=== PATIENT | male | born 1945 | race Caucasian/White ===

== ENCOUNTER → 2016-08-08 | Outpatient (CLI) | payer MEDICARE, OTHER ==
[2016-08-08 12:11] LABS: Basophils % (A) 0 %; CH 29.4; CHCM 32.8; Eosinophils # (A) 0.2 k/uL (0-0.7); Eosinophils % (A) 3 %; HCT 47.5 % (39.0-53.0); HDW 2.66; HGB 15.4 gm/dL (13.0-17.5); Luc % (Auto) 2; Lymphocytes % (A) 21 %; MCH 29.2 pg (25.0-35.0); MCHC 32.4 g/dL (31.0-37.0); MCV 90.2 fL (80.0-100.0); Mean Platelet Volume 7.1; Monocytes # (A) 0.2 k/uL (0-1.0); Monocytes % (A) 5 %; Neutrophils # (A) 3.3 k/uL (1.3-7.7); Neutrophils % (A) 69 %; RBC 5.26 m/uL (4.30-5.90); RDW 14.5 % (11.5-15.5); WBC 4.9 k/uL (3.8-10.6); WBC (Perox) 4.86
[2016-08-08 12:12] LABS: Appearance,Urine Clear (Clear); Bilirubin,Urine Negative (Negative); Glucose,Urine (UA) Negative (Negative); Ketones,Urine Negative (Negative); Leukocyte Esterase,Urine Negative (Negative); Mucus,Urine Rare /hpf; Nitrite,Urine Negative (Negative); Particle Count 1925; Protein,Urine 1+ (Negative); RBC,Urine <1 /hpf (0-5); Specific Gravity,Urine 1.015 (1.001-1.035); UA Billing (MACRO vs. MICRO) MICRO; Urobilinogen,Urine <2.0 mg/dL (<2.0); WBC,Urine 2 /hpf (0-5)
[2016-08-08 12:18] LABS: Anion Gap 11 mmol/L; Blood Urea Nitrogen 22 mg/dL (9-20); Calcium 9.5 mg/dL (8.4-10.2); Carbon Dioxide 28 mmol/L (22-30); Chloride 99 mmol/L (98-107); Glucose 177 mg/dL (74-99); Non-African American GFR(MDRD) >60 (>60 ml/min/1.73 sqM); Potassium 4.7 mmol/L (3.5-5.1); Sodium 138 mmol/L (137-145)
== END | disposition home or self-care (01) ==
LOC: LABWHC1 11:42
PROVIDERS: ATTEND Urology
DX: N40.1 Benign prostatic hyperplasia with lower urinary tract symptoms (principal); N21.9 Calculus of lower urinary tract, unspecified
CPT/HCPCS: 36415; 80048; 81001; 85025; 87086

== ENCOUNTER 2020-03-30 16:40 | Inpatient (IN) | payer MEDICARE, OTHER ==
[2020-03-30] MEDS ORDERED: MORPHINE SULFATE 4 MG/ML SYRINGE IV STA (17:26)
[2020-03-30] MEDS ORDERED: SODIUM CHLORIDE 0.9% 500 ML 500 ML IV STA ×2 (17:26→19:55)
[2020-03-30] MEDS ORDERED: ONDANSETRON 4 MG/2 ML VIAL IVP STA (17:26)
[2020-03-30 18:26] LABS: Basophils # (A) 0.1 k/uL (0-0.2); Basophils % (A) 0 %; Eosinophils # (A) 0.1 k/uL (0-0.7); Eosinophils % (A) 1 %; HGB 18.4 gm/dL (13.0-17.5); Lymphocytes # (A) 0.1 k/uL (1.0-4.8); Lymphocytes % (A) 1 %; MCH 31.4 pg (25.0-35.0); MCHC 33.1 g/dL (31.0-37.0); MCV 94.9 fL (80.0-100.0); Mean Platelet Volume 6.4; Monocytes # (A) 0.4 k/uL (0-1.0); Monocytes % (A) 3 %; Neutrophils # (A) 12.9 k/uL (1.3-7.7); Neutrophils % (A) 95 %; Platelet Count 165 k/uL (150-450); RBC 5.86 m/uL (4.30-5.90); RDW 13.1 % (11.5-15.5); WBC 13.6 k/uL (3.8-10.6)
[2020-03-30 18:27] LABS: HCT 55.6 % (39.0-53.0)
[2020-03-30 18:38] LABS: Albumin 4.6 g/dL (3.5-5.0); Calcium 9.8 mg/dL (8.4-10.2); Total Bilirubin 1.1 mg/dL (0.2-1.3); Total Protein 7.7 g/dL (6.3-8.2)
[2020-03-30 18:50] LABS: Partial Thromboplastin Time 23.7 sec (22.0-30.0); Prothrombin Time 10.1 sec (9.0-12.0)
[2020-03-30 18:55] LABS: Potassium 6.3 mmol/L (3.5-5.1)
--- NOTE | 2020-03-30 19:18 | ED ---
Abdominal Pain HPI - General Source: patient Mode of arrival: ambulatory Limitations: no limitations <Parvin Marsh - Last Filed: 03/30/20 21:35> <Loco Magaña - Last Filed: 03/31/20 16:36> - General Chief Complaint: Abdominal Pain Stated Complaint: Abd Pain Time Seen by Provider: 03/30/20 17:09 - History of Present Illness Initial Comments: Patient is a 74-year-old male, with history of ileostomy, presenting to the emergency Department with complaints of severe abdominal pain that started last night. Patient states he noticed a dull stomachache start yesterday evening but throughout the night and today the pain has intensified. Patient states it is intermittent, when it is severe he rates it at 9/10. Currently it is about a 3/10. He states it is mostly in his upper at to mid abdomen. He denies any radiation. He states he does have chronic back pain and that seems to be stable. He has also had about 10 episodes of vomiting throughout last night and into this morning. He states he still feels a little nauseous. He denies any fever, chills, chest pain, shortness of breath. He denies any falls or trauma. 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 He states his output has been less than the last 24 hours. He has no urinary complaints. He has no further complaints at this time. (Parvin Marsh) - Related Data Allergies Allergy/AdvReac Type Severity Reaction Status Date / Time No Known Allergies Allergy Verified 03/30/20 21:40 Review of Systems ROS Other: All systems not noted in ROS Statement are negative. <Parvin Marsh - Last Filed: 03/30/20 21:35> ROS Other: All systems not noted in ROS Statement are negative. <Loco Magaña - Last Filed: 03/31/20 16:36> ROS Statement: Those systems with pertinent positive or pertinent negative responses have been documented in the HPI. Past Medical History Past Medical History: Diabetes Mellitus History of Any Multi-Drug Resistant Organisms: None Reported Additional Past Surgical History / Comment(s): illeostomy Smoking Status: Never smoker Past Alcohol Use History: None Reported Past Drug Use History: None Reported <Parvin Marsh - Last Filed: 03/30/20 21:35> General Exam Limitations: no limitations <Parvin Marsh - Last Filed: 03/30/20 21:35> - General Exam Comments Initial Comments: GENERAL: Patient is well-developed and well-nourished. Patient is nontoxic and in mild distress. HEAD: Atraumatic, normocephalic. EYES: Pupils equal round and reactive to light, extraocular movements intact, sclera anicteric, conjunctiva are normal. Eyelids were unremarkable. ENT: TMs normal, nares patent, oropharynx clear without exudates. Moist mucous membranes. NECK: Normal range of motion, supple without lymphadenopathy or JVD. LUNGS: Unlabored respirations. Breath sounds clear to auscultation bilaterally and equal. No wheezes rales or rhonchi. HEART: Regular rate and rhythm without murmurs, rubs or gallops. ABDOMEN: Pain with palpation epigastric and mid upper abdomen. Ilieostomy present, no signs of infection. Soft, normoactive bowel sounds. No guarding, no rebound. No masses appreciated. : Deferred MUSCULOSKELETAL: Normal extremities with adequate strength and normal range of motion, no pitting or edema. No clubbing or cyanosis. NEUROLOGICAL: Patient is alert and oriented x 3. Motor and sensory are also intact. Cranial nerves II through XII grossly intact. Symmetrical smile. Normal speech, normal gait. PSYCH: Normal mood, normal affect. SKIN: Warm, Dry, normal turgor, no rashes or lesions noted. (Parvin Marsh) Course Vital Signs 03/30/20 03/30/20 03/30/20 16:41 19:38 20:45 Temperature 98.4 F Pulse Rate 68 107 H 121 H Pulse Rate [ Pulse Oximetery ] Respiratory 16 18 18 Rate Blood Pressure 129/76 140/77 O2 Sat by Pulse 97 95 Oximetry 03/30/20 03/30/20 03/30/20 20:51 23:04 23:13 Temperature Pulse Rate 122 H 112 H 112 H Pulse Rate [ Pulse Oximetery ] Respiratory 18 18 Rate Blood Pressure 123/65 O2 Sat by Pulse 96 Oximetry 03/31/20 03/31/20 03/31/20 01:01 01:35 04:00 Temperature Pulse Rate 108 H 108 H Pulse Rate [ 113 H Pulse Oximetery ] Respiratory 18 18 16 Rate Blood Pressure 128/71 127/75 O2 Sat by Pulse 97 94 L Oximetry 03/31/20 04:01 Temperature 98 F Pulse Rate 105 H Pulse Rate [ Pulse Oximetery ] Respiratory 18 Rate Blood Pressure 129/74 O2 Sat by Pulse 94 L Oximetry Medical Decision Making - Lab Data Result diagrams: 03/30/20 18:08 03/30/20 18:08 <Parvin Marsh - Last Filed: 03/30/20 21:35> - Lab Data Result diagrams: 03/31/20 09:42 03/31/20 09:42 <Loco Magaña - Last Filed: 03/31/20 16:36> - Medical Decision Making Patient is a 74-year-old male with history of illostomy presenting with severe abdominal pain, vomiting started last night. Vital signs are stable upon arrival. Patient has significant pain is upper abdomen. Labs show white count of 13.6, coags are normal, potassium is elevated at 6.3, creatinine is 1.35 slightly elevated from baseline, lactic acid did return at 3.3. CT abdomen does show a small bowel obstruction. Patient is given fluids, pain control. He has been resting comfortably. NG tube was placed, patient will remain NPO, and patient will be admitted. Patient accepted by Dr. Almanzar, Dr. Miller on consult for [facility] managment. Case discussed with Dr. Magaña. (Parvin Marsh) 74-year-old male presenting with abdominal pain, vomiting. Patient is distended. Workup is initiated, patient has elevated lactic acid, elevated creatinine. His potassium is also elevated likely secondary to dehydration and acute kidney injury. CT shows small bowel obstruction. Patient is given IV hyd ration, pain control. NG tube is placed. I discussed case with Dr. Almanzar who will take admission with medicine on consult. (Loco Magaña) - Lab Data Lab Results 03/30/20 03/30/20 03/30/20 Range/Units 18:08 18:08 18:08 WBC 13.6 H (3.8-10.6) k/uL RBC 5.86 (4.30-5.90) m/uL Hgb 18.4 H (13.0-17.5) gm/dL Hct 55.6 H (39.0-53.0) % MCV 94.9 (80.0-100.0) fL MCH 31.4 (25.0-35.0) pg MCHC 33.1 (31.0-37.0) g/dL RDW 13.1 (11.5-15.5) % Plt Count 165 (150-450) k/uL MPV 6.4 Neutrophils % 95 % Lymphocytes % 1 % Monocytes % 3 % Eosinophils % 1 % Basophils % 0 % Neutrophils # 12.9 H (1.3-7.7) k/uL Lymphocytes # 0.1 L (1.0-4.8) k/uL Monocytes # 0.4 (0-1.0) k/uL Eosinophils # 0.1 (0-0.7) k/uL Basophils # 0.1 (0-0.2) k/uL PT 10.1 (9.0-12.0) sec INR 1.0 (<1.2) APTT 23.7 (22.0-30.0) sec Sodium (137-145) mmol/L Potassium (3.5-5.1) mmol/L Chloride (98-107) mmol/L Carbon Dioxide (22-30) mmol/L Anion Gap mmol/L BUN (9-20) mg/dL Creatinine (0.66-1.25) mg/dL Est GFR (CKD-EPI)AfAm (>60 ml/min/1.73 sqM) Est GFR (CKD-EPI)NonAf (>60 ml/min/1.73 sqM) Glucose (74-99) mg/dL Lactic Ac Sepsis Rflx Plasma Lactic Acid Margarito (0.7-2.0) mmol/L Calcium (8.4-10.2) mg/dL Total Bilirubin (0.2-1.3) mg/dL AST (17-59) U/L ALT (4-49) U/L Alkaline Phosphatase (38-126) U/L Total Protein (6.3-8.2) g/dL Albumin (3.5-5.0) g/dL Amylase (30-110) U/L Lipase (23-300) U/L Urine Color Light Yellow Urine Appearance Clear (Clear) Urine pH 5.0 (5.0-8.0) Ur Specific [place] 1.050 H (1.001-1.035) Urine Protein Negative (Negative) Urine Glucose (UA) 4+ H (Negative) Urine Ketones 1+ H (Negative) Urine Blood Negative (Negative) Urine Nitrite Negative (Negative) Urine Bilirubin Negative (Negative) Urine Urobilinogen <2.0 (<2.0) mg/dL Ur Leukocyte Esterase Negative (Negative) 03/30/20 03/30/20 03/30/20 Range/Units 18:08 18:08 18:54 WBC (3.8-10.6) k/uL RBC (4.30-5.90) m/uL Hgb (13.0-17.5) gm/dL Hct (39.0-53.0) % MCV (80.0-100.0) fL MCH (25.0-35.0) pg MCHC (31.0-37.0) g/dL RDW (11.5-15.5) % Plt Count (150-450) k/uL MPV Neutrophils % % Lymphocytes % % Monocytes % % Eosinophils % % Basophils % % Neutrophils # (1.3-7.7) k/uL Lymphocytes # (1.0-4.8) k/uL Monocytes # (0-1.0) k/uL Eosinophils # (0-0.7) k/uL Basophils # (0-0.2) k/uL PT (9.0-12.0) sec INR (<1.2) APTT (22.0-30.0) sec Sodium 136 L (137-145) mmol/L Potassium 6.3 H* (3.5-5.1) mmol/L Chloride 99 (98-107) mmol/L Carbon Dioxide 25 (22-30) mmol/L Anion Gap 12 mmol/L BUN 25 H (9-20) mg/dL Creatinine 1.35 H (0.66-1.25) mg/dL Est GFR (CKD-EPI)AfAm 60 (>60 ml/min/1.73 sqM) Est GFR (CKD-EPI)NonAf 52 (>60 ml/min/1.73 sqM) Glucose 320 H (74-99) mg/dL Lactic Ac Sepsis Rflx Y Plasma Lactic Acid Margarito 3.3 H* (0.7-2.0) mmol/L Calcium 9.8 (8.4-10.2) mg/dL Total Bilirubin 1.1 (0.2-1.3) mg/dL AST 31 (17-59) U/L ALT 24 (4-49) U/L Alkaline Phosphatase 72 (38-126) U/L Total Protein 7.7 (6.3-8.2) g/dL Albumin 4.6 (3.5-5.0) g/dL Amylase 55 (30-110) U/L Lipase 27 (23-300) U/L Urine Color Urine Appearance (Clear) Urine pH (5.0-8.0) Ur Specific [place] (1.001-1.035) Urine Protein (Negative) Urine Glucose (UA) (Negative) Urine Ketones (Negative) Urine Blood (Negative) Urine Nitrite (Negative) Urine Bilirubin (Negative) Urine Urobilinogen (<2.0) mg/dL Ur Leukocyte Esterase (Negative) Disposition Decision Date: 03/30/20 Decision Time: 20:04 <Parvin Marsh - Last Filed: 03/30/20 21:35> <Loco Magaña - Last Filed: 03/31/20 16:36> Clinical Impression: Abdominal pain, Small bowel obstruction, Sepsis Disposition: ADMITTED IP TO THIS [facility] Condition: Good
[2020-03-30] MEDS ORDERED: DEXTROSE 50% SYRINGE 50 ML IVP ONE (19:33)
[2020-03-30] MEDS ORDERED: INSULIN REGULAR 100 UNIT/ML VIAL IV ONE (19:33)
[2020-03-30] MEDS ORDERED: ALBUTEROL NEB (CONC) 2.5 MG/0.5 ML INHALATION ONE (19:33)
--- NOTE | 2020-03-30 19:43 | CT ---
EXAMINATION TYPE: CT abdomen pelvis w con DATE OF EXAM: 03/30/2020 COMPARISON: 10/22/2015. HISTORY: Abdominal pain and vomiting CT DLP: 722.4 mGycm Automated exposure control for dose reduction was used. TECHNIQUE: Helical acquisition of images was performed from the lung bases through the pelvis. CONTRAST: Performed without Oral Contrast and with IV Contrast, patient injected with 100 mL of Isovue 300. FINDINGS: LUNG BASES: No significant abnormality is appreciated. LIVER/GB: No acute abnormality is appreciated. Hepatic steatosis is noted. PANCREAS: No significant abnormality is seen. SPLEEN: No significant abnormality is seen. ADRENALS: No significant abnormality is seen. KIDNEYS: No significant abnormality is seen. Benign-appearing 1.4 cm right renal cyst. No follow-up i s needed. FREE AIR: No free air is visualized. RETROPERITONEAL ADENOPATHY: None visualized REPRODUCTIVE ORGANS: No significant abnormality is seen URINARY BLADDER: No acute abnormality is seen. Prostatomegaly seen. PELVIC ADENOPATHY: None visualized. OSSEOUS STRUCTURES: No acute abnormality is seen. Multilevel moderate to severe thoracolumbar spondy losis. BOWEL: Prior colectomy with right-sided ostomy again noted. Multiple dilated small bowel loops witho ut clear transition point seen. No significant free fluid or air. OTHER: Moderate atherosclerotic disease. Small area of hyperdensity in the posterior stomach, most co mpatible with injected material/medication. IMPRESSION: Findings of distal small bowel obstruction, probably related to adhesions. Otherwise prior colectomy with contrast dated ostomy.
[2020-03-30] MEDS ORDERED: PIPERACILLIN-TAZOBACTAM 3.375 GM in SODIUM CHLORIDE 0.9% 100 ML IVPB STA (19:54)
[2020-03-30] MEDS ORDERED: CALCIUM GLUCONATE 1 GM in SODIUM CHLORIDE 0.9% 100 ML IVPB ONE (20:00)
[2020-03-30] MEDS ORDERED: NALOXONE 0.4 MG/ML 1 ML VIAL IV PRN (20:03)
[2020-03-30] MEDS ORDERED: MORPHINE SULFATE 4 MG/ML SYRINGE IV PRN (20:03)
[2020-03-30] MEDS ORDERED: ONDANSETRON 4 MG/2 ML VIAL IVP PRN (20:03)
--- NOTE | 2020-03-30 20:38 | XR ---
EXAMINATION TYPE: XR chest 1V portable DATE OF EXAM: 03/30/2020 COMPARISON: NONE HISTORY: NG tube placement. TECHNIQUE: Single frontal view of the chest is obtained. FINDINGS: There is demonstration of an NG tube with tip overlying the stomach. There is no focal air space opacity, pleural effusion, or pneumothorax seen. The cardiac silhouette size is within normal limits. The osseous structures are intact. IMPRESSION: As above.
[2020-03-30 21:30] LABS: Glucose,Whole Blood 316 mg/dL (75-99)
[2020-03-30] MEDS: SODIUM CHLORIDE 0.9% 1,000 ML IV SCH (21:34)
[2020-03-30 21:36] LABS: Appearance,Urine Clear (Clear); Bilirubin,Urine Negative (Negative); Blood,Urine Negative (Negative); Color,Urine Light Yellow; Glucose,Urine (UA) 4+ (Negative); Ketones,Urine 1+ (Negative); Leukocyte Esterase,Urine Negative (Negative); Nitrite,Urine Negative (Negative); Protein,Urine Negative (Negative); Urobilinogen,Urine <2.0 mg/dL (<2.0)
[2020-03-30] MEDS: INSULIN ASPART (NovoLOG) 100 UNIT/ML VIAL SQ SCH (21:51)
[2020-03-30] MEDS ORDERED: SODIUM CHLORIDE 0.9% 1,000 ML IV STA (22:00)
--- NOTE | 2020-03-30 22:14 | ED ---
Medical Decision Making - Lab Data Result diagrams: 03/30/20 18:08 03/30/20 18:08 <Parvin Marsh - Last Filed: 03/30/20 22:04> - Lab Data Result diagrams: 03/31/20 09:42 03/31/20 09:42 <Loco Magaña Leny - Last Filed: 03/31/20 16:35> - Medical Decision Making Patient's second lactic acid came back increased 7.1. I did complete a focus of this exam. Patient is tachycardic in the 120s. He is having no pain at this time, no further complaints at this time. Patient was given an additional liter bolus, we will continue with maintenance fluids, recheck potassium, and recheck lactic. (Parvin Marsh) - Lab Data Lab Results 03/30/20 03/30/20 03/30/20 Range/Units 18:08 18:08 18:08 WBC 13.6 H (3.8-10.6) k/uL RBC 5.86 (4.30-5.90) m/uL Hgb 18.4 H (13.0-17.5) gm/dL Hct 55.6 H (39.0-53.0) % MCV 94.9 (80.0-100.0) fL MCH 31.4 (25.0-35.0) pg MCHC 33.1 (31.0-37.0) g/dL RDW 13.1 (11.5-15.5) % Plt Count 165 (150-450) k/uL MPV 6.4 Neutrophils % 95 % Lymphocytes % 1 % Monocytes % 3 % Eosinophils % 1 % Basophils % 0 % Neutrophils # 12.9 H (1.3-7.7) k/uL Lymphocytes # 0.1 L (1.0-4.8) k/uL Monocytes # 0.4 (0-1.0) k/uL Eosinophils # 0.1 (0-0.7) k/uL Basophils # 0.1 (0-0.2) k/uL PT 10.1 (9.0-12.0) sec INR 1.0 (<1.2) APTT 23.7 (22.0-30.0) sec Sodium (137-145) mmol/L Potassium (3.5-5.1) mmol/L Chloride (98-107) mmol/L Carbon Dioxide (22-30) mmol/L Anion Gap mmol/L BUN (9-20) mg/dL Creatinine (0.66-1.25) mg/dL Est GFR (CKD-EPI)AfAm (>60 ml/min/1.73 sqM) Est GFR (CKD-EPI)NonAf (>60 ml/min/1.73 sqM) Glucose (74-99) mg/dL Lactic Ac Sepsis Rflx Plasma Lactic Acid Margarito (0.7-2.0) mmol/L Calcium (8.4-10.2) mg/dL Total Bilirubin (0.2-1.3) mg/dL AST (17-59) U/L ALT (4-49) U/L Alkaline Phosphatase (38-126) U/L Total Protein (6.3-8.2) g/dL Albumin (3.5-5.0) g/dL Amylase (30-110) U/L Lipase (23-300) U/L Urine Color Light Yellow Urine Appearance Clear (Clear) Urine pH 5.0 (5.0-8.0) Ur Specific [place] 1.050 H (1.001-1.035) Urine Protein Negative (Negative) Urine Glucose (UA) 4+ H (Negative) Urine Ketones 1+ H (Negative) Urine Blood Negative (Negative) Urine Nitrite Negative (Negative) Urine Bilirubin Negative (Negative) Urine Urobilinogen <2.0 (<2.0) mg/dL Ur Leukocyte Esterase Negative (Negative) 03/30/20 03/30/20 03/30/20 Range/Units 18:08 18:08 18:54 WBC (3.8-10.6) k/uL RBC (4.30-5.90) m/uL Hgb (13.0-17.5) gm/dL Hct (39.0-53.0) % MCV (80.0-100.0) fL MCH (25.0-35.0) pg MCHC (31.0-37.0) g/dL RDW (11.5-15.5) % Plt Count (150-450) k/uL MPV Neutrophils % % Lymphocytes % % Monocytes % % Eosinophils % % Basophils % % Neutrophils # (1.3-7.7) k/uL Lymphocytes # (1.0-4.8) k/uL Monocytes # (0-1.0) k/uL Eosinophils # (0-0.7) k/uL Basophils # (0-0.2) k/uL PT (9.0-12.0) sec INR (<1.2) APTT (22.0-30.0) sec Sodium 136 L (137-145) mmol/L Potassium 6.3 H* (3.5-5.1) mmol/L Chloride 99 (98-107) mmol/L Carbon Dioxide 25 (22-30) mmol/L Anion Gap 12 mmol/L BUN 25 H (9-20) mg/dL Creatinine 1.35 H (0.66-1.25) mg/dL Est GFR (CKD-EPI)AfAm 60 (>60 ml/min/1.73 sqM) Est GFR (CKD-EPI)NonAf 52 (>60 ml/min/1.73 sqM) Glucose 320 H (74-99) mg/dL Lactic Ac Sepsis Rflx Y Plasma Lactic Acid Margarito 3.3 H* (0.7-2.0) mmol/L Calcium 9.8 (8.4-10.2) mg/dL Total Bilirubin 1.1 (0.2-1.3) mg/dL AST 31 (17-59) U/L ALT 24 (4-49) U/L Alkaline Phosphatase 72 (38-126) U/L Total Protein 7.7 (6.3-8.2) g/dL Albumin 4.6 (3.5-5.0) g/dL Amylase 55 (30-110) U/L Lipase 27 (23-300) U/L Urine Color Urine Appearance (Clear) Urine pH (5.0-8.0) Ur Specific [place] (1.001-1.035) Urine Protein (Negative) Urine Glucose (UA) (Negative) Urine Ketones (Negative) Urine Blood (Negative) Urine Nitrite (Negative) Urine Bilirubin (Negative) Urine Urobilinogen (<2.0) mg/dL Ur Leukocyte Esterase (Negative) Critical Care Time Critical Care Time: Yes Total Critical Care Time: 35 (Severe abdominal pain, small bowel obstruction, lactic acid elevated at 3.3 then increased to 7.1, 2 fluid boluses, maintenance fluids, elevated potassium.) <Parvin Marsh - Last Filed: 03/30/20 22:04> Disposition <Parvin Marsh - Last Filed: 03/30/20 22:04> <Loco Magaña - Last Filed: 03/31/20 16:35> Clinical Impression: Abdominal pain, Small bowel obstruction, Sepsis Disposition: ADMITTED IP TO THIS HOSP Condition: Good Procedures - Sepsis Sepsis Focused Exam #1 Time Sepsis Criteria Met: 21:30 Sepsis Focused Exam Date: 03/30/20 Sepsis Focused Exam Time: 22:11 Sepsis Focused Exam Complete: Yes Vital Signs & RN Notes Reviewed: Yes Capillary Refill: < 2 Seconds: Fingers, Toes Peripheral Pulses: Normal: Radial (R), Radial (L), Dorsalis Pedis (R), Dorsalis Pedis (L) Skin Color: Normal for Patient Respiratory Exam: normal lung sounds Cardiovascular Exam: tachycardia <aPrvin Marsh - Last Filed: 03/30/20 22:04>
[2020-03-31] MEDS ORDERED: SODIUM CHLORIDE 0.9% 1,000 ML IV ONE (01:14)
[2020-03-31] MEDS: PIPERACILLIN-TAZOBACTAM 3.375 GM in SODIUM CHLORIDE 0.9% 100 ML IVPB SCH ×3 (04:33→19:50)
[2020-03-31 07:38] LABS: Glucose,Whole Blood 212 mg/dL (75-99)
[2020-03-31] MEDS: SODIUM CHLORIDE 0.9% 1,000 ML IV SCH ×2 (08:07→12:32)
[2020-03-31] MEDS: INSULIN ASPART (NovoLOG) 100 UNIT/ML VIAL SQ SCH ×4 (08:07→21:13)
[2020-03-31 10:41] LABS: Basophils % (A) 1 %; Eosinophils # (A) 0.1 k/uL (0-0.7); Eosinophils % (A) 2 %; Lymphocytes # (A) 0.4 k/uL (1.0-4.8); Lymphocytes % (A) 7 %; MCH 30.9 pg (25.0-35.0); MCHC 32.1 g/dL (31.0-37.0); MCV 96.3 fL (80.0-100.0); Mean Platelet Volume 6.3; Monocytes # (A) 0.4 k/uL (0-1.0); Monocytes % (A) 8 %; Neutrophils # (A) 4.3 k/uL (1.3-7.7); Neutrophils % (A) 81 %; Platelet Count 152 k/uL (150-450); RBC 4.98 m/uL (4.30-5.90); RDW 13.4 % (11.5-15.5); WBC 5.4 k/uL (3.8-10.6)
[2020-03-31 10:48] LABS: ALT 18 U/L (4-49); AST 29 U/L (17-59); African American GFR (CKD) 71 (>60 ml/min/1.73 sqM); Albumin 3.2 g/dL (3.5-5.0); Albumin/Globulin Ratio 1.4; Alkaline Phosphatase 49 U/L (38-126); Anion Gap 5 mmol/L; Blood Urea Nitrogen 18 mg/dL (9-20); Carbon Dioxide 29 mmol/L (22-30); Chloride 105 mmol/L (98-107); Globulin 2.3 g/dL; Glucose 220 mg/dL (74-99); Non-African American GFR(CKD) 61 (>60 ml/min/1.73 sqM); Potassium 4.4 mmol/L (3.5-5.1); Sodium 139 mmol/L (137-145); Total Bilirubin 1.1 mg/dL (0.2-1.3); Total Protein 5.5 g/dL (6.3-8.2)
[2020-03-31 10:49] LABS: HGB 15.4 gm/dL (13.0-17.5)
[2020-03-31 11:39] LABS: Glucose,Whole Blood 180 mg/dL (75-99)
[2020-03-31] MEDS: ACETAMINOPHEN IV (For NPO) 1,000 MG in EMPTY BAG 1 BAG IVPB SCH ×3 (12:24→23:12)
--- NOTE | 2020-03-31 12:26 | P.GSHP ---
History of Present Illness H&P Date: 03/31/20 CHIEF COMPLAINT: Abdominal pain HISTORY OF PRESENT ILLNESS: This is a 74-year-old male with a known history of ulcerative colitis with colectomy and ileostomy placement about 45 years ago. He also has a history of diabetes mellitus type 2, hypertension and hypothyroidism. Patient presents to the emergency room with complaints of lower abdominal pain that started yesterday evening. Patient initially started with a dull stomachache yesterday but throughout the night the pain intensified. He r eports that the pain came in waves. And would get as severe as 9 out of 10. The pain does not radiate. He has had nausea and vomiting. He reports decreased output through his ileostomy. He has been feeling hot and cold. Patient denies any fever. Denies any difficulty with urinating. He had a computed tomography scan of the abdomen and pelvis with findings of the distal small bowel obstruction possibly related to adhesions. NG tube placed in ER. NG tube output 250 mL of bilious. PAST MEDICAL HISTORY: See list. PAST SURGICAL HISTORY: See list. MEDICATIONS: See list. ALLERGIES: See list. SOCIAL HISTORY: No illicit drug use. REVIEW OF SYSTEMS: CONSTITUTIONAL: Denies fever or chills. HEENT: Denies blurred vision, vision changes, or eye pain. Denies hemoptysis CARDIOVASCULAR: Denies chest pain or pressure. RESPIRATORY: No shortness of breath. GASTROINTESTINAL: See HPI for pertinent findings HEMATOLOGIC: Denies bleeding disorders. GENITOURINARY: Denies any blood in urine or increased urinary frequency. SKIN: Denies pruitis. Denies rash. PHYSICAL EXAM: VITAL SIGNS: Reviewed GENERAL: Well-developed in no acute distress. HEENT: No sclera icterus. Extraocular movements grossly intact. Moist buccal mucosa. Head is atraumatic, normocephalic. No nasal drainage. ABDOMEN: Soft. Distended with lower abdominal tenderness. NG tube in place NEUROLOGIC: Alert and oriented. Cranial nerves II through XII grossly intact. LABORATORY DATA: WBC 13.6 down to 5.4 hemoglobin 15.4 potassium 6.3 down to 4.4 creatinine 1.35 down to 1.17 lactic acid 7.1 down to 3.3 LFTs and lipase normal UA negative IMAGING: computed tomography scan of the abdomen and pelvis with findings of the distal small bowel obstruction possibly related to adhesions ASSESSMENT: 1. Small bowel obstruction possibly related to adhesions 2. Possible sepsis present on admission with elevated lactic acid and tachycardia 3. Hyperkalemia corrected 4. Dehydration and acute kidney injury 5. Diabetes mellitus type 2 6. History of ulcerative colitis status post colectomy and ileostomy placement about 45 years ago PLAN: -Continue with conservative management for bowel obstruction -Continue NG tube for decompression -Increase IV fluids to 125 mL per hour -Add IV Tylenol as needed for pain and continue morphine as needed -Keep patient nothing by mouth except for ice chips -Continue IV antibiotics -Consult medicine for medical management -GI prophylaxis Protonix and DVT prophylaxis subcu heparin Physician Bicycle Fitter note has been reviewed by physician. Signing provider agrees with the documented findings, assessment, and plan of care. Past Medical History Past Medical History: Diabetes Mellitus Additional Past Medical History / Comment(s): Dizziness, chronic and recently worse, BPH, stated he had a major bleed after a surgery which required transfusions when he was in his twenties. History of Any Multi-Drug Resistant Organisms: None Reported Past Surgical History: Prostate Surgery Additional Past Surgical History / Comment(s): illeostomy Past Anesthesia/Blood Transfusion Reactions: Blood Transfusion Reaction Additional Past Anesthesia/Blood Transfusion Reaction / Comment(s): States he had a reaction to one transfusion but it was corrected quickly and completed Smoking Status: Never smoker Past Alcohol Use History: None Reported Past Drug Use History: None Reported - Past Family History Father Family Medical History: Cancer, Diabetes Mellitus Medications and Allergies Home Medications Medication Instructions Recorded Confirmed Type Benazepril [Lotensin] 2.5 mg PO DAILY 03/30/20 03/30/20 History Famotidine [Pepcid] 20 mg PO DAILY 03/30/20 03/30/20 History Insulin Aspart Protam & Aspart 30 units SQ BID 03/30/20 03/30/20 History [NovoLOG MIX 70-30 Flexpen] Levothyroxine Sodium [Synthroid] 100 mcg PO HS 03/30/20 03/30/20 History Simvastatin [Zocor] 20 mg PO HS 03/30/20 03/30/20 History Terazosin HCl [Hytrin] 10 mg PO DAILY 03/30/20 03/30/20 History allopurinoL [Zyloprim] 300 mg PO DAILY 03/30/20 03/30/20 History metFORMIN HCL [Glucophage] 425 mg PO DAILY 03/30/20 03/30/20 History Allergies Allergy/AdvReac Type Severity Reaction Status Date / Time No Known Allergies Allergy Verified 03/30/20 21:40 Surgical - Exam Vital Signs Temp Pulse Resp BP Pulse Ox 98.4 F 68 16 129/76 97 03/30/20 16:41 03/30/20 16:41 03/30/20 16:41 03/30/20 16:41 03/30/20 16:41 Results - Labs 03/31/20 09:42 03/31/20 09:42 Abnormal Lab Results - Last 24 Hours (Table) 03/30/20 03/30/20 03/30/20 Range/Units 18:08 18:08 18:08 WBC 13.6 H (3.8-10.6) k/uL Hgb 18.4 H (13.0-17.5) gm/dL Hct 55.6 H (39.0-53.0) % Neutrophils # 12.9 H (1.3-7.7) k/uL Lymphocytes # 0.1 L (1.0-4.8) k/uL Sodium 136 L (137-145) mmol/L Potassium 6.3 H* (3.5-5.1) mmol/L BUN 25 H (9-20) mg/dL Creatinine 1.35 H (0.66-1.25) mg/dL Glucose 320 H (74-99) mg/dL POC Glucose (mg/dL) (75-99) mg/dL Plasma Lactic Acid Margarito (0.7-2.0) mmol/L Calcium (8.4-10.2) mg/dL Total Protein (6.3-8.2) g/dL Albumin (3.5-5.0) g/dL Ur Specific [place] 1.050 H (1.001-1.035) Urine Glucose (UA) 4+ H (Negative) Urine Ketones 1+ H (Negative) 03/30/20 03/30/20 03/30/20 Range/Units 18:08 21:17 21:29 WBC (3.8-10.6) k/uL Hgb (13.0-17.5) gm/dL Hct (39.0-53.0) % Neutrophils # (1.3-7.7) k/uL Lymphocytes # (1.0-4.8) k/uL Sodium (137-145) mmol/L Potassium (3.5-5.1) mmol/L BUN (9-20) mg/dL Creatinine (0.66-1.25) mg/dL Glucose (74-99) mg/dL POC Glucose (mg/dL) 316 H (75-99) mg/dL Plasma Lactic Acid Margarito 3.3 H* 7.1 H* (0.7-2.0) mmol/L Calcium (8.4-10.2) mg/dL Total Protein (6.3-8.2) g/dL Albumin (3.5-5.0) g/dL Ur Specific [place] (1.001-1.035) Urine Glucose (UA) (Negative) Urine Ketones (Negative) 03/31/20 03/31/20 03/31/20 Range/Units 00:19 03:15 06:06 WBC (3.8-10.6) k/uL Hgb (13.0-17.5) gm/dL Hct (39.0-53.0) % Neutrophils # (1.3-7.7) k/uL Lymphocytes # (1.0-4.8) k/uL Sodium (137-145) mmol/L Potassium (3.5-5.1) mmol/L BUN (9-20) mg/dL Creatinine (0.66-1.25) mg/dL Glucose (74-99) mg/dL POC Glucose (mg/dL) (75-99) mg/dL Plasma Lactic Acid Margarito 5.2 H* 2.8 H* 2.2 H* (0.7-2.0) mmol/L Calcium (8.4-10.2) mg/dL Total Protein (6.3-8.2) g/dL Albumin (3.5-5.0) g/dL Ur Specific [place] (1.001-1.035) Urine Glucose (UA) (Negative) Urine Ketones (Negative) 03/31/20 03/31/20 03/31/20 Range/Units 07:37 09:42 09:42 WBC (3.8-10.6) k/uL Hgb (13.0-17.5) gm/dL Hct (39.0-53.0) % Neutrophils # (1.3-7.7) k/uL Lymphocytes # 0.4 L (1.0-4.8) k/uL Sodium (137-145) mmol/L Potassium (3.5-5.1) mmol/L BUN (9-20) mg/dL Creatinine (0.66-1.25) mg/dL Glucose 220 H (74-99) mg/dL POC Glucose (mg/dL) 212 H (75-99) mg/dL Plasma Lactic Acid Margarito (0.7-2.0) mmol/L Calcium 8.0 L (8.4-10.2) mg/dL Total Protein 5.5 L (6.3-8.2) g/dL Albumin 3.2 L (3.5-5.0) g/dL Ur Specific [place] (1.001-1.035) Urine Glucose (UA) (Negative) Urine Ketones (Negative) 03/31/20 03/31/20 Range/Units 09:42 11:38 WBC (3.8-10.6) k/uL Hgb (13.0-17.5) gm/dL Hct (39.0-53.0) % Neutrophils # (1.3-7.7) k/uL Lymphocytes # (1.0-4.8) k/uL Sodium (137-145) mmol/L Potassium (3.5-5.1) mmol/L BUN (9-20) mg/dL Creatinine (0.66-1.25) mg/dL Glucose (74-99) mg/dL POC Glucose (mg/dL) 180 H (75-99) mg/dL Plasma Lactic Acid Margarito 3.3 H* (0.7-2.0) mmol/L Calcium (8.4-10.2) mg/dL Total Protein (6.3-8.2) g/dL Albumin (3.5-5.0) g/dL Ur Specific [place] (1.001-1.035) Urine Glucose (UA) (Negative) Urine Ketones (Negative) Diabetes panel 03/30/20 03/31/20 03/31/20 Range/Units 18:08 00:19 09:42 Sodium 136 L 139 (137-145) mmol/L Potassium 6.3 H* 4.2 4.4 (3.5-5.1) mmol/L Chloride 99 105 (98-107) mmol/L Carbon Dioxide 25 29 (22-30) mmol/L BUN 25 H 18 (9-20) mg/dL Creatinine 1.35 H 1.17 (0.66-1.25) mg/dL Glucose 320 H 220 H (74-99) mg/dL Calcium 9.8 8.0 L (8.4-10.2) mg/dL AST 31 29 (17-59) U/L ALT 24 18 (4-49) U/L Alkaline Phosphatase 72 49 (38-126) U/L Total Protein 7.7 5.5 L (6.3-8.2) g/dL Albumin 4.6 3.2 L (3.5-5.0) g/dL Calcium panel 03/30/20 03/31/20 Range/Units 18:08 09:42 Calcium 9.8 8.0 L (8.4-10.2) mg/dL Albumin 4.6 3.2 L (3.5-5.0) g/dL Pituitary panel 03/30/20 03/31/20 03/31/20 Range/Units 18:08 00:19 09:42 Sodium 136 L 139 (137-145) mmol/L Potassium 6.3 H* 4.2 4.4 (3.5-5.1) mmol/L Chloride 99 105 (98-107) mmol/L Carbon Dioxide 25 29 (22-30) mmol/L BUN 25 H 18 (9-20) mg/dL Creatinine 1.35 H 1.17 (0.66-1.25) mg/dL Glucose 320 H 220 H (74-99) mg/dL Calcium 9.8 8.0 L (8.4-10.2) mg/dL Adrenal panel 03/30/20 03/31/20 03/31/20 Range/Units 18:08 00:19 09:42 Sodium 136 L 139 (137-145) mmol/L Potassium 6.3 H* 4.2 4.4 (3.5-5.1) mmol/L Chloride 99 105 (98-107) mmol/L Carbon Dioxide 25 29 (22-30) mmol/L BUN 25 H 18 (9-20) mg/dL Creatinine 1.35 H 1.17 (0.66-1.25) mg/dL Glucose 320 H 220 H (74-99) mg/dL Calcium 9.8 8.0 L (8.4-10.2) mg/dL Total Bilirubin 1.1 1.1 (0.2-1.3) mg/dL AST 31 29 (17-59) U/L ALT 24 18 (4-49) U/L Alkaline Phosphatase 72 49 (38-126) U/L Total Protein 7.7 5.5 L (6.3-8.2) g/dL Albumin 4.6 3.2 L (3.5-5.0) g/dL
[2020-03-31] MEDS: PANTOPRAZOLE 40 MG/10 ML VIAL IVP SCH (12:35)
[2020-03-31 17:20] LABS: Glucose,Whole Blood 218 mg/dL (75-99)
--- NOTE | 2020-03-31 19:27 | HP ---
HISTORY AND PHYSICAL ADMITTING SUMMARY: CHIEF COMPLAINT: Abdominal pain and vomiting. HISTORY OF PRESENT ILLNESS: This is the first known admission for ut for this 74-year-old white male. He came to the office complaining of 1-day history of generalized crampy abdominal pain with 1 episode of vomiting. He has a colostomy and his discharge in the colostomy has been reduced. He has had no fever, chills, dysuria, frequency etc. REVIEW OF SYSTEMS: Otherwise unremarkable. Past medical history, family history and personal and social histories are otherwise unremarkable only include his medications. He does not smoke or drink. PHYSICAL EXAMINATION: Blood pressure is 116/74 with a pulse of 85, respirations of 33. He is afebrile. In general, he appeared to be small, slightly dehydrated. Head, ears, eyes, nose, mouth, and throat were unremarkable. Chest is clear. Cardiac exam is normal and the abdomen is slightly protuberant. He had generalized abdominal tenderness with guarding. Bowel sounds were diminished. No definite masses. Colostomy appeared to be normal. Extremities are normal. Neurologic is intact. IMPRESSION: He is admitted to the hospital with diagnoses: 1. Acute abdominal pain, etiology unknown. 2. Hypertension. 3. Diabetes. 4. Colostomy. PLAN: 1. Bed rest. 2. IV fluids. 3. N.p.o. 4. Analgesics. 5. Follow GI findings. 6. Surgery consult. MMODL / SADIQ: [id number] /
--- NOTE | 2020-03-31 19:27 | PN ---
PROGRESS NOTE DATE OF SERVICE: 03/31/2020 CHIEF COMPLAINT: Abdominal pain with vomiting. HISTORY OF PRESENT ILLNESS: This gentleman is stable. NG tube is in place. Apparently he has a small bowel obstruction. PHYSICAL EXAMINATION: Chest is clear. Cardiac exam is normal. The abdomen is silent. NG tubes present in the nose. His hydration is improved. IMPRESSION: Small-bowel obstruction. PLAN: Continue with IV fluids and await for further developments to see if this resolves spontaneously or he requires surgery. MMODL / IJN: [id number] /
[2020-03-31 20:57] LABS: Glucose,Whole Blood 169 mg/dL (75-99)
[2020-03-31] MEDS: HEPARIN SODIUM,PORCINE 5,000 UNIT/ML 1 ML VIAL SQ SCH (21:16)
[2020-04-01] MEDS: SODIUM CHLORIDE 0.9% 1,000 ML IV SCH ×3 (00:48→13:07)
[2020-04-01] MEDS: PIPERACILLIN-TAZOBACTAM 3.375 GM in SODIUM CHLORIDE 0.9% 100 ML IVPB SCH ×3 (03:01→19:09)
[2020-04-01] MEDS: ACETAMINOPHEN IV (For NPO) 1,000 MG in EMPTY BAG 1 BAG IVPB SCH (04:59)
[2020-04-01 06:25] LABS: Basophils % (A) 0 %; Eosinophils # (A) 0.3 k/uL (0-0.7); Eosinophils % (A) 6 %; HCT 45.6 % (39.0-53.0); HGB 14.7 gm/dL (13.0-17.5); Lymphocytes # (A) 0.4 k/uL (1.0-4.8); Lymphocytes % (A) 8 %; MCH 31.5 pg (25.0-35.0); MCHC 32.3 g/dL (31.0-37.0); MCV 97.7 fL (80.0-100.0); Mean Platelet Volume 6.4; Monocytes # (A) 0.4 k/uL (0-1.0); Monocytes % (A) 8 %; Neutrophils # (A) 3.7 k/uL (1.3-7.7); Neutrophils % (A) 77 %; Platelet Count 133 k/uL (150-450); RBC 4.66 m/uL (4.30-5.90); RDW 13.5 % (11.5-15.5); WBC 4.8 k/uL (3.8-10.6)
[2020-04-01 07:10] LABS: Glucose,Whole Blood 195 mg/dL (75-99)
[2020-04-01] MEDS: PANTOPRAZOLE 40 MG/10 ML VIAL IVP SCH (09:14)
[2020-04-01] MEDS: HEPARIN SODIUM,PORCINE 5,000 UNIT/ML 1 ML VIAL SQ SCH ×2 (09:14→20:29)
[2020-04-01] MEDS: INSULIN ASPART (NovoLOG) 100 UNIT/ML VIAL SQ SCH ×4 (09:15→20:29)
[2020-04-01 09:26] LABS: African American GFR (CKD) 62.7 (60.0-200.0); Albumin/Globulin Ratio 1.76 (1.60-3.17); Anion Gap 7.8 mmol/L (4.00-12.00); BUN/Creat Ratio 13.08 Ratio (12.00-20.00); Calcium 7.7 mg/dL (8.7-10.3); Carbon Dioxide 26.2 mmol/L (21.6-31.8); Globulin 1.7 g/dL (1.6-3.3); Non-African American GFR(CKD) 54.1 (60.0-200.0); Potassium 4.3 mmol/L (3.5-5.5); Total Protein 4.7 g/dL (6.2-8.2)
[2020-04-01] MEDS ORDERED: KETOROLAC 15 MG/ML 1 ML VIAL IVP PRN (11:17)
[2020-04-01 11:21] LABS: Glucose,Whole Blood 160 mg/dL (75-99)
--- NOTE | 2020-04-01 12:52 | P.PN ---
Subjective Progress Note Date: 04/01/20 CHIEF COMPLAINT: Abdominal pain HISTORY OF PRESENT ILLNESS: Patient is followed for small bowel obstruction. He is reporting that he was having some mild mid abdominal pain. Patient seen this afternoon with Dr. Almanzar inpatient is now passing gas and having increased stool through his ostomy. His pain is improved. NG tube will be removed and he'll be started on a full liquid diet. He is afebrile. WBC 4.8 PHYSICAL EXAM: VITAL SIGNS: Reviewed. GENERAL: Well-developed in no acute distress. HEENT: No sclera icterus. Extraocular movements grossly intact. Moist buccal mucosa. Head is atraumatic, normocephalic. ABDOMEN: Soft. Nondistended mid abdominal tenderness with palpation. Stool p resent in his ostomy NEUROLOGIC: Alert and oriented. Cranial nerves II through XII grossly intact. ASSESSMENT: 1. Small bowel obstruction possibly related to adhesions 2. Possible sepsis present on admission with elevated lactic acid and tachycardia 3. Hyperkalemia corrected 4. Dehydration and acute kidney injury 5. Diabetes mellitus type 2 6. History of ulcerative colitis status post colectomy and ileostomy placement about 45 years ago PLAN: -Continue with conservative management for bowel obstruction -Discontinue NG tube and start patient on full liquid diet -Toradol added as needed for pain control -GI prophylaxis Protonix and DVT prophylaxis subcu heparin Physician Statistician Mathematical note has been reviewed by physician. Signing provider agrees with the documented findings, assessment, and plan of care. Objective - Vital Signs Vital signs: Vital Signs Temp 98.1 F 04/01/20 04:52 Pulse 84 04/01/20 04:52 Resp 18 04/01/20 04:52 BP 124/71 04/01/20 04:52 Pulse Ox 94 L 04/01/20 04:52 Intake & Output 03/31/20 04/01/20 04/01/20 18:59 06:59 18:59 Intake Total 1100 480 Output Total 500 800 600 Balance 600 -320 -600 Intake: Intake, IV Titration 1100 Amount Piperacillin-Tazobactam 3 100 .375 gm In Sodium Chloride 0.9% 100 ml @ 25 mls/hr IVPB Q8H [facility] Rx#: [id number] Sodium Chloride 0.9% 1, 1000 000 ml @ 125 mls/hr IV . Q8H [facility] Rx#:[id number] Oral 480 Output: Gastric Drainage 500 500 Urine 300 Stool 0 600 Other: Voiding Method Urinal Urinal # Voids 0 - Labs CBC & Chem 7: 04/01/20 05:51 04/01/20 05:51 Labs: Abnormal Lab Results - Last 24 Hours (Table) 03/31/20 03/31/20 04/01/20 Range/Units 17:19 20:55 05:51 Plt Count 133 L (150-450) k/uL Lymphocytes # 0.4 L (1.0-4.8) k/uL Est GFR (CKD-EPI)NonAf (60.0-200.0) Glucose (70-110) mg/dL POC Glucose (mg/dL) 218 H 169 H (75-99) mg/dL Calcium (8.7-10.3) mg/dL Total Protein (6.2-8.2) g/dL Albumin (3.80-4.90) g/dL 04/01/20 04/01/20 04/01/20 Range/Units 05:51 07:08 11:20 Plt Count (150-450) k/uL Lymphocytes # (1.0-4.8) k/uL Est GFR (CKD-EPI)NonAf 54.1 L (60.0-200.0) Glucose 196 H (70-110) mg/dL POC Glucose (mg/dL) 195 H 160 H (75-99) mg/dL Calcium 7.7 L (8.7-10.3) mg/dL Total Protein 4.7 L (6.2-8.2) g/dL Albumin 3.00 L (3.80-4.90) g/dL
[2020-04-01 17:12] LABS: Glucose,Whole Blood 203 mg/dL (75-99)
[2020-04-01 20:12] LABS: Glucose,Whole Blood 159 mg/dL (75-99)
--- NOTE | 2020-04-01 20:37 | PN ---
PROGRESS NOTE DATE OF SERVICE: 04/01/2020 CHIEF COMPLAINT: Small bowel obstruction. HISTORY OF PRESENT ILLNESS: This gentleman is still having some episodes of discomfort. He has not started to place much GI content into his colostomy bag and he still remains distended. PHYSICAL EXAMINATION: He is still slightly distended and generally tender. Bowel sounds are not heard. Chest is clear. Cardiac exam is normal. IMPRESSION: Small bowel obstruction. PLAN: Continue with IV fluids, NG tube and conservative management in hopes that he will respond without surgery. MMODL / IJN: [id number] /
[2020-04-02] MEDS: PIPERACILLIN-TAZOBACTAM 3.375 GM in SODIUM CHLORIDE 0.9% 100 ML IVPB SCH ×3 (03:39→19:41)
[2020-04-02] MEDS: SODIUM CHLORIDE 0.9% 1,000 ML IV SCH ×2 (03:40→12:19)
[2020-04-02 08:42] LABS: Glucose,Whole Blood 207 mg/dL (75-99)
[2020-04-02] MEDS: HEPARIN SODIUM,PORCINE 5,000 UNIT/ML 1 ML VIAL SQ SCH ×2 (08:59→21:02)
[2020-04-02] MEDS: PANTOPRAZOLE 40 MG/10 ML VIAL IVP SCH (08:59)
[2020-04-02] MEDS: INSULIN ASPART (NovoLOG) 100 UNIT/ML VIAL SQ SCH ×4 (08:59→20:52)
--- NOTE | 2020-04-02 10:57 | P.PN ---
Subjective Progress Note Date: 04/02/20 CHIEF COMPLAINT: Abdominal pain HISTORY OF PRESENT ILLNESS: Patient is followed for small bowel obstruction. Patient's abdominal pain has decreased. He rates his pain about a 2 out of 10 still in the mid abdomen. He is having still more stool through his ostomy. He is currently on a full liquid diet NG tube was removed yesterday and he has tolerated this well. Agree with medicine they've advanced the diet to regular carbohydrate consistent. Patient is afebrile. PHYSICAL EXAM: VITAL SIGNS: Reviewed. GENERAL: Well-developed in no acute distress. HEENT: No sclera icterus. Extraocular movements grossly intact. Moist buccal mucosa. Head is atraumatic, normocephalic. ABDOMEN: Soft. Nondistended mid abdominal tenderness with palpation. Stool present in his ostomy NEUROLOGIC: Alert and oriented. Cranial nerves II through XII grossly intact. ASSESSMENT: 1. Small bowel obstruction possibly related to adhesions 2. Possible sepsis present on admission with elevated lactic acid and t achycardia 3. Hyperkalemia corrected 4. Dehydration and acute kidney injury. Improved 5. Diabetes mellitus type 2 6. History of ulcerative colitis status post colectomy and ileostomy placement about 45 years ago PLAN: -Continue with conservative management for bowel obstruction -Agree with advancing diet to regular -Encouraged patient to ambulate -Hep-Lock IV fluids -GI prophylaxis Protonix and DVT prophylaxis subcu heparin Physician Staff Trainer note has been reviewed by physician. Signing provider agrees with the documented findings, assessment, and plan of care. Objective - Vital Signs Vital signs: Vital Signs Temp 98.1 F 04/02/20 05:00 Pulse 82 04/02/20 05:00 Resp 16 04/02/20 05:00 BP 138/77 04/02/20 05:00 Pulse Ox 96 04/02/20 05:00 Intake & Output 04/01/20 04/02/20 04/02/20 18:59 06:59 18:59 Intake Total 480 1575 Output Total 1650 1200 250 Balance -1170 375 -250 Intake: Intake, IV Titration 1575 Amount Piperacillin-Tazobactam 3 200 .375 gm In Sodium Chloride 0.9% 100 ml @ 25 mls/hr IVPB Q8H [facility] Rx#: [id number] Sodium Chloride 0.9% 1, 1375 000 ml @ 125 mls/hr IV . Q8H [facility] Rx#:[id number] Oral 480 Output: Urine 200 Stool 1650 1000 250 Other: Voiding Method Urinal - Labs CBC & Chem 7: 04/01/20 05:51 04/01/20 05:51 Labs: Abnormal Lab Results - Last 24 Hours (Table) 04/01/20 04/01/20 04/01/20 Range/Units 11: 17:11 20:10 POC Glucose (mg/dL) 160 H 203 H 159 H (75-99) mg/dL 04/02/20 Range/Units 08:40 POC Glucose (mg/dL) 207 H (75-99) mg/dL
[2020-04-02 11:10] LABS: Glucose,Whole Blood 251 mg/dL (75-99)
[2020-04-02] MEDS: INSULN ASP PRT/INSULIN ASPART 100 UNIT/ML 10 ML VIAL SQ SCH ×2 (12:37→18:12)
[2020-04-02 16:59] LABS: Glucose,Whole Blood 166 mg/dL (75-99)
--- NOTE | 2020-04-02 19:35 | PN ---
PROGRESS NOTE DATE OF SERVICE: 04/02/2020 CHIEF COMPLAINT: Small bowel obstruction. HISTORY OF PRESENT ILLNESS: This gentleman's obstruction has broken loose. He is putting out large and frequent quantities of material in his colostomy bag. Abdomen is less distended. The pain is gone. His diet is being advanced. PHYSICAL EXAMINATION: Chest is clear. Cardiac exam is normal. The abdomen is soft and nontender and flatter than it was. IMPRESSION: Resolving small bowel obstruction. PLAN: Increase activity and probably home tomorrow. MMODL / IJN: [id number] /
[2020-04-02 20:27] LABS: Glucose,Whole Blood 124 mg/dL (75-99)
[2020-04-02] MEDS: ACETAMINOPHEN TAB 325 MG TAB PO PRN (21:05)
[2020-04-03] MEDS: ACETAMINOPHEN TAB 325 MG TAB PO PRN (02:54)
[2020-04-03] MEDS: PIPERACILLIN-TAZOBACTAM 3.375 GM in SODIUM CHLORIDE 0.9% 100 ML IVPB SCH ×2 (03:50→12:28)
[2020-04-03 07:10] LABS: Glucose,Whole Blood 193 mg/dL (75-99)
[2020-04-03] MEDS ORDERED: PANTOPRAZOLE 40 MG TABLET PO SCH (07:30)
[2020-04-03] MEDS: INSULN ASP PRT/INSULIN ASPART 100 UNIT/ML 10 ML VIAL SQ SCH (08:16)
[2020-04-03] MEDS: HEPARIN SODIUM,PORCINE 5,000 UNIT/ML 1 ML VIAL SQ SCH (08:16)
[2020-04-03] MEDS: INSULIN ASPART (NovoLOG) 100 UNIT/ML VIAL SQ SCH ×2 (08:17→12:27)
[2020-04-03 10:58] LABS: African American GFR (CKD) 62.7 (60.0-200.0); Anion Gap 6.8 mmol/L (4.00-12.00); Calcium 8.5 mg/dL (8.7-10.3); Carbon Dioxide 24.2 mmol/L (21.6-31.8); Non-African American GFR(CKD) 54.1 (60.0-200.0); Potassium 4.4 mmol/L (3.5-5.5)
--- NOTE | 2020-04-03 11:00 | P.PN ---
Subjective Progress Note Date: 04/03/20 CHIEF COMPLAINT: Abdominal pain HISTORY OF PRESENT ILLNESS: Patient is followed for small bowel obstruction. Patient reports improvement in his abdominal pain. He is having stool through his ostomy. He is tolerating regular diet. He is afebrile. He is stable for discharge from surgical standpoint PHYSICAL EXAM: VITAL SIGNS: Reviewed. GENERAL: Well-developed in no acute distress. HEENT: No sclera icterus. Extraocular movements grossly intact. Moist buccal mucosa. Head is atraumatic, normocephalic. ABDOMEN: Soft. Nondistended Stool present in his ostomy NEUROLOGIC: Alert and oriented. Cranial nerves II through XII grossly intact. ASSESSMENT: 1. Small bowel obstruction possibly related to adhesions. Now resolved 2. Possible sepsis present on admission with elevated lactic acid and tachycardia 3. Hyperkalemia corrected 4. Dehydration and acute kidney injury. Improved 5. Diabetes mellitus type 2 6. History of ulcerative colitis status post colectomy and ileostomy placement about 45 years ago PLAN: -Continue regular diet -Patient can be discharged home from surgical standpoint -Patient help with Dr. Almanzar in 1 week -GI prophylaxis Protonix and DVT prophylaxis subcu heparin Physician Recovery Room Nurse note has been reviewed by physician. Signing provider agrees with the documented findings, assessment, and plan of care. Objective - Vital Signs Vital signs: Vital Signs Temp 97.8 F 04/03/20 05:00 Pulse 64 04/03/20 05:00 Resp 18 04/03/20 05:00 BP 135/68 04/03/20 05:00 Pulse Ox 95 04/03/20 05:00 Intake & Output 04/02/20 04/03/20 04/03/20 18:59 06:59 18:59 Intake Total 1090 340 360 Output Total 1450 Balance -360 340 360 Intake: Intake, IV Titration 850 100 Amount Piperacillin-Tazobactam 3 100 100 .375 gm In Sodium Chloride 0.9% 100 ml @ 25 mls/hr IVPB Q8H [facility] Rx#: [id number] Sodium Chloride 0.9% 1, 750 000 ml @ 125 mls/hr IV . Q8H [facility] Rx#:[id number] Oral 240 240 360 Output: Urine 500 Stool 950 Other: Voiding Method Urinal # Voids 500 - Labs CBC & Chem 7: 04/01/20 05:51 04/01/20 05:51 Labs: Abnormal Lab Results - Last 24 Hours (Table) 04/02/20 04/02/20 04/02/20 Range/Units 11:09 16:58 20:16 POC Glucose (mg/dL) 251 H 166 H 124 H (75-99) mg/dL 04/03/20 Range/Units 07:09 POC Glucose (mg/dL) 193 H (75-99) mg/dL
[2020-04-03 11:43] LABS: Glucose,Whole Blood 224 mg/dL (75-99)
[2020-04-03 12:07] VITALS: BP 148/81; PULSE 63; RESP 17; TEMP 98.5
--- NOTE | 2020-04-03 18:27 | DS ---
DISCHARGE SUMMARY CHIEF COMPLAINT: Abdominal pain and distention. HISTORY OF PRESENT ILLNESS AND PHYSICAL EXAMINATION: Details of this man's history and physical can be found in the initial workup. LABORATORY STUDIES: While he was in the hospital he had laboratory studies, details of which can be found in the laboratory section of his chart. COURSE IN THE HOSPITAL: After admission he was placed on bedrest, started on intravenous fluids and nasogastric tube suction. He was seen by Surgery. He was kept n.p.o. For several days he failed to have any output in his colostomy bag. However, on about the third hospital day he broke loose and started to pass a large amount of fecal material into the bag and his pain was relieved. He was started on diet, did well, and it was felt that he could go home on April 03 on his usual activity, diet and medication, and he will be followed up closely in the office. FINAL DIAGNOSES: 1. Small-bowel obstruction. 2. Status post colostomy. 3. Hypertension. 4. Diabetes. OPERATIONS: None. CONSULTATION: Surgery. He is improved. MMODL / IJN: [id number] /
--- NOTE | 2020-04-06 06:25 | CDI ---
Documentation Clarification Form Date: 04/06/20 From: Noa Meraz Phone: If you have a question about this query, please contact Kelly John, Sizing Sprayer at [phone] between 8am and 5pm. Admit Date: 03/30/20 Discharge Date: 04/03/20 Patient Name: DANIEL HENAO Visit Number: [id number] ATTENTION: The Clinical Documentation Specialists (CDI) and [facility] Coding Staff appreciate your assistance in clarifying documentation. Please respond to the clarification below the line at the bottom and electronically sign. The CDI & [facility] Coding staff will review the response and follow-up if needed. Please note: Queries are made part of the Legal Health Record. If you have any questions, please contact the author of this message via ITS. Dear Dr. Adriel Miller, The diagnosis of possible sepsis was documented in the ED note, H&P and PNs by Kayleen on 04/01, 04/02 & 04/03 , but is not noted in subsequent documentation. History/Risk Factors: SBO, ulcerative colitis, s/p ileostomy, DM, HTN, SOWMYA, hyperkalemia, dehydration, hypothyroidism Clinical Indicators: In Ed was diagnosed with sepsis. T-98.4, P-107/121/122, R- 16/18, BP-129/76,O2 sat-97/95 Treatment: IV fluid bolus, IV Zosyn Please clarify if the sepsis Present and treated admission Sepsis ruled out Other, please specify Clinically unable to determine MTDD
--- NOTE | 2020-04-06 06:33 | CDI ---
Documentation Clarification Form Date: 04/06/20 From: Noa Meraz Phone: If you have a question about this query, please contact Kelly John, Husbandry Technician at [phone] between 8am and 5pm. Admit Date: 03/30/20 Discharge Date: 04/03/20 Patient Name: DANIEL HENAO Visit Number: [id number] ATTENTION: The [facility] ([facility]) and [facility] Coding Staff appreciate your assistance in clarifying documentation. Please respond to the clarification below the line at the bottom and electronically sign. The CDI & [facility] Coding staff will review the response and follow-up if needed. Please note: Queries are made part of the Legal Health Record. If you have any questions, please contact the author of this message via ITS. Dear Dr. Adriel Miller, Documentation states: elevated lactic acid History/Risk Factors: SBO, ulcerative colitis, s/p ileostomy, DM, HTN, SOWMYA, hyperkalemia, dehydration, hypothyroidism Clinical indicators: Severe abdominal pain, small bowel obstruction, lactic acid elevated at 3.3 then increased to 7.1, 2 fluid boluses, maintenance fluids, elevated potassium. Abnormal lactic acid: 3.3, 7.1, 5.2, 2.8, 2.2, 3.3 Lactic Acid (sepsis) Reflex: positive times 6 Treatment: IV fluid bolus, IV Zosyn Clinical significance of diagnostic testing and treatment CANNOT be assumed or coded without physician documentation of significance if any. Please clarify what abnormal laboratory signifies: Lactic acidosis Abnormal Lab Value Unable to determine Other, please specify MTDD
--- NOTE | 2020-04-15 05:51 | MISC ---
MISCELLANOUS REPORT QUERY: Sepsis ruled out. Unable to determine, that is regarding lactic acid. MMODL / IJN: [id number] /
== END 2020-04-03 15:11 | disposition home or self-care (01) | DRG 389 ==
LOC: SUPCPDRO 16:40 → EC 16:40 → 6NMEDSUR 19:57
PROVIDERS: ADMIT Family Medicine; ATTEND Family Medicine
PROC: 0D9670Z Drainage of Stomach with Drainage Device, Via Natural or Artificial Opening (ICD-10-PCS; principal; 2020-03-30)
DX: K56.609 Unspecified intestinal obstruction, unspecified as to partial versus complete obstruction (principal); K51.90 Ulcerative colitis, unspecified, without complications; N17.9 Acute kidney failure, unspecified; E11.9 Type 2 diabetes mellitus without complications; Z79.4 Long term (current) use of insulin; Z93.2 Ileostomy status; Z66 Do not resuscitate; E87.5 Hyperkalemia; E86.0 Dehydration; I10 Essential (primary) hypertension; E03.9 Hypothyroidism, unspecified; G89.29 Other chronic pain; N40.0 Benign prostatic hyperplasia without lower urinary tract symptoms; Z79.890 Hormone replacement therapy; Z79.899 Other long term (current) drug therapy; M54.9 Dorsalgia, unspecified; Z90.49 Acquired absence of other specified parts of digestive tract; Z98.890 Other specified postprocedural states; Z83.3 Family history of diabetes mellitus; Z80.9 Family history of malignant neoplasm, unspecified
CPT/HCPCS: 36415; 71045; 74177; 80048; 80053; 81003; 82150; 83605; 83690; 84132; 85025; 85610; 85730; 93005; 96361; 96365; 96375; 96376; 99285